=== PATIENT | female | born 1970 | race Two or more races ===

== ENCOUNTER → 2019-11-22 | Outpatient (CLI) | payer OTHER | END | disposition home or self-care (01) | LOC: OFIC 805 14:00 | PROVIDERS: ATTEND Otolaryngology Otology & Neurotology | DX: G50.1 Atypical facial pain (principal); R09.81 Nasal congestion; J01.80 Other acute sinusitis ==

== ENCOUNTER 2019-12-25 14:40 | Outpatient (CLI) | payer OTHER | END 2019-12-25 15:20 | disposition home or self-care (01) | LOC: OFIC 805 14:40 | PROVIDERS: ATTEND Otolaryngology Otology & Neurotology | DX: G44.009 Cluster headache syndrome, unspecified, not intractable (principal); R09.81 Nasal congestion; G50.1 Atypical facial pain ==

== ENCOUNTER 2020-11-26 17:15 | Emergency (ER) | payer OTHER ==
[~2020-11-26] VITALS: Ht 162.6 cm; Wt 67.6 kg
[2020-11-26] MEDS ORDERED: SYNTHROID175 MCG (17:29)
[2020-11-26] MEDS ORDERED: SINGULAIR10 MG (17:29)
[2020-11-26] MEDS ORDERED: LEVOTHYROXINE25 MCG (17:29)
[2020-11-26] MEDS ORDERED: PROTONIX40 MG (17:30)
[2020-11-26] MEDS ORDERED: PROAIR HFA8.5 GM (17:30)
[2020-11-26] MEDS ORDERED: PEPCID40 MG (17:30)
[2020-11-26] MEDS ORDERED: ULTRACET PO (23:01)
== END 2020-11-26 23:24 | disposition home or self-care (01) ==
LOC: ER 17:15
DX: N13.2 Hydronephrosis with renal and ureteral calculous obstruction (principal); R10.11 Right upper quadrant pain; R10.31 Right lower quadrant pain

== ENCOUNTER 2021-06-10 18:16 | Emergency (ER) | payer OTHER ==
[~2021-06-10] VITALS: Ht 162.6 cm; Wt 67.6 kg
[~2021-06-10 18:16] MED LIST: LEVOTHYROXINE25 MCG; PEPCID40 MG; PROAIR HFA8.5 GM; PROTONIX40 MG; SINGULAIR10 MG; SYNTHROID175 MCG; ULTRACET PO
[2021-06-10] MEDS ORDERED: MOBIC15 MG PO (22:30)
[2021-06-10] MEDS ORDERED: CEFADROXIL500 MG PO (22:31)
== END 2021-06-10 22:42 ==
LOC: ER 18:16
DX: M25.511 Pain in right shoulder (principal); R51.9 Headache, unspecified